=== PATIENT | female | born 1950 | race Caucasian/White ===

== ENCOUNTER 2022-08-18 06:30 | Day surgery (SDC) | payer MEDICARE, OTHER ==
--- NOTE | 2022-08-12 08:15 | HP ---
DATE OF SURGERY: 08/18/2022 HISTORY OF PRESENT ILLNESS: The patient presents for a colonoscopy. The last colonoscopy was four years ago and she had polyps. She denies any family history of colon cancer or any GI symptoms at this time. PAST MEDICAL HISTORY: Hyperlipidemia, hypertension. PAST SURGICAL HISTORY: Detached retina. Hysterectomy. ALLERGIES: ACETAMINOPHEN. CODEINE. MEDICATIONS: Simvastatin. FAMILY HISTORY: None reported. SOCIAL HISTORY: Former smoker, occasional alcohol. REVIEW OF SYSTEMS: CONSTITUTIONAL: Denies fever or chills. CHEST: Denies shortness of breath. CVS: Denies chest pain. ABDOMEN: Denies abdominal pain. PHYSICAL EXAMINATION: GENERAL: No acute distress. CHEST: Nonlabored. No shortness of breath. CVS: Regular rate and rhythm. ABDOMEN: Soft. IMPRESSION: History of colon polyps. PLAN: Colonoscopy with Dr. Christos Rodriguez. As dictated by Lisa Nevarez NP.
[2022-08-18] MEDS ORDERED: Lactated Ringers 1,000 ML IV SCH (07:00)
[2022-08-18] MEDS ORDERED: Xylocaine-Mpf 2% 5 Ml Vial ONE (09:28)
[2022-08-18] MEDS ORDERED: DIPRIVAN 200 MG/20 ML IV ONE (09:28)
[2022-08-18 10:32] VITALS: BP 144/69; PULSE 54; O2SAT 99
--- NOTE | 2022-08-18 10:58 | OP ---
SURGERY DATE/TIME: 08/18/2022 0927 PREOPERATIVE DIAGNOSIS: Five year follow up of polyps. POSTOPERATIVE DIAGNOSIS: No polyps today. There is mild scattered diverticulosis. There is quite bit of narrowing and angulation of the sigmoid. PROCEDURE: Colonoscopy to the cecum. SURGEON: Christos Rodriguez M.D. [employer] PREPARATION SUPERVISOR: Mario Howell, Medical Student III. ANESTHESIA: MAC. COMPLICATIONS: None. CONDITION: Stable. INDICATION: A patient requiring evaluation. DESCRIPTION OF PROCEDURE: Anal digital examination satisfactory. Scope introduced. In the rectum, rectosigmoid junction of the sigmoid was narrow just a hair bigger than the scope and it was very carefully navigated. Descending colon entered and then the colon was a little more normal size. Scope advanced over towards the liver and then it was turned down. It was advanced into the base of the cecum. There was a scar where previous appendix had been. The ileocecal valve was normal. Base of the cecum otherwise is normal. Ascending, hepatic, transverse, splenic, descending, sigmoid, rectum, anus satisfactory exam today. She will be 76. I think at this time we can put screening exams totally on hold. If she has symptoms we could do an endoscopic exam on this lady.
== END 2022-08-18 10:45 | disposition home or self-care (01) ==
LOC: SDC 06:30
PROVIDERS: ATTEND Surgery
DX: Z09 Encounter for follow-up examination after completed treatment for conditions other than malignant neoplasm (principal); Z86.010 Personal history of colon polyps; K57.30 Diverticulosis of large intestine without perforation or abscess without bleeding
CPT/HCPCS: 99100; J2704